=== PATIENT | female | born 1975 | race Caucasian/White ===

== ENCOUNTER 2016-12-07 00:13 | Emergency (ER) | payer OTHER ==
[~2016-12-07] VITALS: Ht 167.6 cm; Wt 83.9 kg
[2016-12-07 00:43] LABS: ABSOLUTE BASOPHIL COUNT 0.1 /CUMM (0.0-0.2); ABSOLUTE EOSINOPHIL COUNT 0.2 /CUMM (0.0-0.7); ABSOLUTE GRANULOCYTE CT 4.6 /CUMM (1.4-6.5); ABSOLUTE LYMPH COUNT 2.6 /CUMM (1.2-3.4); ABSOLUTE MONOCYTE COUNT 0.8 /CUMM (0.10-0.60); BASOPHIL % 0.9 % (0.0-2.0); EOSINOPHIL % 2.8 % (0-5); GRANULOCYTE % 55.4 % (42.2-75.2); HEMATOCRIT 36.1 % (37-47); MEAN CORPUSCULAR HGB CONC 32.7 G/DL (33.0-37.0); MEAN CORPUSCULAR VOLUME 85.8 FL (81.0-99.0); MEAN PLATELET VOLUME 6.3 FL (7.4-10.4); PLATELET COUNT 348 /CUMM (130-400); RBC DISTRIBUTION WIDTH 14.9 % (11.5-14.5); RED BLOOD CELL CT 4.21 /CUMM (4.20-5.40); WHITE BLOOD CELL COUNT 8.3 /CUMM (4.8-10.8)
--- NOTE | 2016-12-07 02:17 | ED CARDIAC/CP/PALPITATIONS ---
History of Present Illness General Chief Complaint: Chest Pain Stated Complaint: CHEST PAIN Source: patient, family Exam Limitations: no limitations Vital Signs & Intake/Output Vital Signs & Intake/Output Vital Signs Date Time Temp Pulse Resp B/P B/P Pulse O2 O2 Flow FiO2 Mean Ox Delivery Rate 12/07 0411 96.8 70 18 125/73 98 Room Air 12/07 0035 96.8 80 18 132/84 97 Room Air Allergies Coded Allergies: NO KNOWN ALLERGIES (NO) (03/30/11) Triage Note: TRIAGE: PATIENT TO ER FROM HOME REPORTING +L SIDE CP X 2.5 HOURS, SHARP AND INCREASED W/ DEEP BREATHING. DENIES ANY SOB, N/V/ ABD PAIN. 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 EKG COMPLETED, NSR. Triage Nurses Notes Reviewed? yes : No Patient currently breastfeeds: No HPI: Patient presents complaining of a sharp stabbing pain around her left breast since approximately 8:30 this evening. Patient states she was carrying dishes in from outside after eating outside when the pain started. Patient states the pain worsens when she takes a deep breath or moves her left arm. There is no radiation of the pain. There is no mitigating factors. Patient took Motrin without relief. Patient denies any shortness of breath. There is no nausea or vomiting. There is no diaphoresis. Patient rates the pain at 7 out of 10. Past History Travel History Traveled to [place] past 21 day No Medical History Any Pertinent Medical History? see below for history Neurological: NONE EENT: NONE Cardiovascular: hypertension Respiratory: NONE Gastrointestinal: irritable bowel syndrome Hepatic: NONE Renal: NONE Musculoskeletal: NONE Psychiatric: NONE Endocrine: NONE Blood Disorders: NONE Cancer(s): NONE [employer]OR[employer]AT MECH[employer]IC INBOARD/Reproductive: PLACENTA ABRUPTION Surgical History Surgical History: non-contributory Psychosocial History What is your primary language Estonian Tobacco Use: Current Daily Use Daily Tobacco Use Amount/Type: => 5 Cigarettes daily ETOH Use: occasional use Illicit Drug Use: denies illicit drug use Family History Hx Contributory? No Review of Systems Review of Systems Constitutional: Reports: no symptoms. EENTM: Reports: no symptoms. Respiratory: Reports: no symptoms. Cardiovascular: Reports: see HPI, chest pain. GI: Reports: no symptoms. Genitourinary: Reports: no symptoms. Musculoskeletal: Reports: no symptoms. Skin: Reports: no symptoms. Neurological/Psychological: Reports: no symptoms. Hematologic/Endocrine: Reports: no symptoms. Immunologic/Allergic: Reports: no symptoms. All Other Systems: Reviewed and Negative Physical Exam Physical Exam General Appearance: well developed/nourished, alert, awake, anxious, mild distress Head: atraumatic, normal appearance Eyes: Bilateral: PERRL, EOMI. Ears, Nose, Throat: normal pharynx, normal ENT inspection, hearing grossly normal Neck: normal inspection, supple, full range of motion, NO JVD Respiratory: normal breath sounds, no respiratory distress, lungs clear, TENDER TO PALP Cardiovascular: regular rate/rhythm, normal peripheral pulses Gastrointestinal: normal bowel sounds, soft, non-tender, no organomegaly Back: normal inspection, normal range of motion Extremities: normal inspection, normal capillary refill, normal range of motion, no edema Neurologic/Psych: no motor/sensory deficits, awake, alert, oriented x 3, normal gait, normal mood/affect Skin: intact, normal color, warm/dry Lymphatic: no anterior cervical brown Core Measures ACS in differential dx? Yes ASA ordered for poss ACS? No-ACS ruled out Severe Sepsis Present: No Septic Shock Present: No Progress Differential Diagnosis: AMI, aortic dissection, cholecystitis, costochondritis, musculoskeletal pain, myocarditis, pericarditis, pneumonia, pneumothorax, pulmonary embolism Plan of Care: Orders Procedure Date/time Status Add-on Test (ER Only) 12/07 0216 Active D-DIMER 12/07 0031 Complete TROPONIN LEVEL 12/07 0022 Complete HUMAN BETA HCG SCREEN 12/07 0022 Complete COMPREHENSIVE METABOLIC PANEL 12/07 0022 Complete CBC WITHOUT DIFFERENTIAL 12/07 0022 Complete EKG 12/07 0015 Active Laboratory Tests 12/07/16 0031: Anion Gap 10, Estimated GFR > 60, BUN/Creatinine Ratio 10.0, Glucose 97, Calcium 9.3, Total Bilirubin 0.3, AST 14, ALT 23, Alkaline Phosphatase 119, Troponin I < 0.01, Total Protein 6.7, Albumin 4.1, Globulin 2.6, Albumin/Globulin Ratio 1.6, Total Beta HCG NEGATIVE, D-Dimer High Sensitivty < 200, CBC w Diff NO MAN DIFF REQ, RBC 4.21, MCV 85.8, MCH 28.0, RDW 14.9 H, MPV 6.3 L, Gran % 55.4, Lymphocytes % 31.5, Monocytes % 9.4 H, Eosinophils % 2.8, Basophils % 0.9, Absolute Granulocytes 4.6, Absolute Lymphocytes 2.6, Absolute Monocytes 0.8 H, Absolute Eosinophils 0.2, Absolute Basophils 0.1, PUBS MCHC 32.7 L Diagnostic Imaging: Viewed by Me: Radiology Read. Discussed w/RAD: Radiology Read. CXR Impression: PATIENT: SONIA NUNO PRESENT AGE: 41 PATIENT ACCOUNT NO: [id number] : 74 LOCATION: [facility] ORDERING PHYSICIAN: DIVYA LUNDBERG MD SERVICE DATE: 12/07/16 EXAM TYPE: RAD - XRY-CHEST XRAY, PA AND LATERAL EXAMINATION: XR CHEST CLINICAL INFORMATION: Chest pain. COMPARISON: No relevant prior imaging available. TECHNIQUE: 2 views of the chest were obtained. FINDINGS: Lungs are clear and well expanded. There is no focal consolidative disease, pleural effusion, or pneumothorax. The cardiac silhouette and upper mediastinal contours are normal. No acute osseous finding. IMPRESSION: Unremarkable chest radiograph. No consolidative disease or effusion. DICTATED BY: EDUARD KRAFT MD DATE/TIME DICTATED:12/07/16340 SALON PROFESSIONAL:SHAINA DATE/TIME TRANSCRIBED:12/07/16340 CONFIDENTIAL, DO NOT COPY WITHOUT APPROPRIATE AUTHORIZATION. <Electronically signed in Other Vendor System> SIGNED BY: EDUARD KRAFT MD 12/07/16345 Initial ED EKG: NSR, no ST T wave changes Prior EKG: unchanged Departure Departure Disposition: HOME OR SELF CARE Condition: Stable Clinical Impression Primary Impression: Chest pain, unspecified Qualifiers: Chest pain type: other chest pain Qualified Code: R07.89 - Other chest pain Referrals: JESÚS TSANG MD (PCP/Family) Additional Instructions: TAKE MOTRIN NEEDED FOR PAIN RETURN FOR ANY CONCERNS Departure Forms: Customer Survey General Discharge Information Critical Care Note Critical Care Note Critical Care Time: non-applicable
--- NOTE | 2016-12-07 03:46 | RADIOLOGY REPORT ---
EXAMINATION: XR CHEST CLINICAL INFORMATION: Chest pain. COMPARISON: No relevant prior imaging available. TECHNIQUE: 2 views of the chest were obtained. FINDINGS: Lungs are clear and well expanded. There is no focal consolidative disease, pleural effusion, or pneumothorax. The cardiac silhouette and upper mediastinal contours are normal. No acute osseous finding. IMPRESSION: Unremarkable chest radiograph. No consolidative disease or effusion.
[2016-12-07 04:11] VITALS: BP 125/73
== END 2016-12-07 04:38 ==
LOC: ERH 00:13
PROVIDERS: Emergency Medicine
DX: R07.9 Chest pain, unspecified (principal)
CPT/HCPCS: 93005; 93010